=== PATIENT | male | born 2000 | race Caucasian/White ===

== ENCOUNTER 2022-08-06 11:07 | Emergency (ER) | payer BC, MEDICAID, SELFPAY ==
[2022-08-06 11:41] VITALS: BP 126/83; PULSE 97; RESP 20; TEMP 38.8; O2SAT 95
--- NOTE | 2022-08-06 12:00 | W.ED.FEVER ---
HPI - Fever General: Chief Complaint: Fever Stated Complaint: fever, n/v Time Seen by Provider: 08/06/22 11:46 Source: patient Mode of arrival: ambulatory Limitations: no limitations History of Present Illness: Patient is a 21-year-old male who presents to ED today with a complaint of fever, body aches, and joint pains beginning yesterday. Patient states he has had positive influenza exposure. He has been seen along with his girlfriend/fianc? who has identical symptoms. MD elicited complaint: fever Onset (ago): day(s) (yesterday) Measured temperature: 101.8 F Context: sick contacts (girlfriend) Associated symptoms: Reports chills and nausea; Deny abdominal pain, flank pain, chest pain, confusion, diarrhea, dysuria, headache(s), nasal congestion, sinus pain or vomiting Treatments prior to arrival fever: ibuprofen (400mg early this AM) Review of Systems Const: Reports: fever(s), chills and body aches Eyes: Denies: change in vision, blurry vision, photophobia, eye discharge or eye redness ENMT: Denies: throat pain, odynophagia, ear or mastoid pain, nasal discharge, nasal congestion or sinus pain Card: Denies: chest pain Resp: Denies: dyspnea, productive cough, non-productive cough or chest congestion GI: Reports: nausea; Denies: abdominal pain, vomiting, diarrhea or change in bowel habits : Denies: flank pain or dysuria Musc: Denies: muscle cramps Skin/Breast: Denies: rash Neuro: Denies: headache(s) or confusion Physical Exam Const: COMMON NORMALS: no acute distress, average body habitus, patient oriented x3, no limitations, alert and well nourished GENERAL APPEARANCE: cooperative ORIENTATION/CONSCIOUSNESS: Yes awake, Yes oriented to person, Yes oriented to place and Yes oriented to time OTHER: mildly ill appearing, non-toxic HENMT: COMMON NORMALS: normocephalic, atraumatic, TM's normal bilaterally and Normal external nose present HEAD & SCALP: normal to inspection, normocephalic and atraumatic FACE & SINUS: normal facial exam NOSE: Normal external nose present TYMPANIC MEMBRANE: TM's normal bilaterally MOUTH: Normal oral and palatal mucosa present, lip normal and tongue normal THROAT: posterior oropharynx normal and tonsils normal Eye: GENERAL EYE: appearance normal, both eyes and all related structures Neck/C-Spine: COMMON NORMALS: full ROM, no lymphadenopathy and no meningeal signs Resp: COMMON NORMALS: normal respiratory effort and clear to auscultation bilaterally AUSCULTATION: clear to auscultation bilaterally Cardio: COMMON NORMALS: regular rate and regular rhythm RATE: regular rate RHYTHM: regular rhythm GI: COMMON NORMALS: Normal to inspection, nondistended, normoactive bowel sounds present, Soft to palpation and non-tender PALPATION: Yes Soft to palpation : COMMON NORMALS: Yes no CVA tenderness BLADDER/KIDNEY EXAM: Yes no CVA tenderness Back/Pelvis: COMMON NORMALS: no CVA tenderness, thoracic and lumbar spine normal to inspection, no thoracic nor lumbar tenderness, thoraco-lumbar ROM normal and straight leg raise negative bilaterally Extremity: COMMON NORMALS: normal to inspection GENERAL: Yes normal exam except as noted Neuro: HELEN COMA SCALE: document GCS findings Helen coma scale eye opening: Spontaneous [place] coma scale verbal response: Orientated [place] coma scale motor response: Obey commands Helen coma scale total score: 15 COMMON NORMALS: patient oriented x3, moves all extremities, no focal motor deficits, no sensory deficits noted and gait normal SENSORIUM/ORIENTATION: Yes alert, Yes oriented to person, Yes oriented to place and Yes oriented to time MENINGEAL SIGNS: Yes no meningeal signs Skin: COMMON NORMALS: no rashes or lesions noted GENERAL SKIN EXAM: no rashes or lesions noted Course Vital Signs: Vital signs: Vital Signs Temperature 101.8 F H 08/06/22 11:41 Pulse Rate 97 08/06/22 11:41 Respiratory Rate 20 H 08/06/22 11:41 Blood Pressure 126/83 08/06/22 11:41 Pulse Oximetry 95 08/06/22 11:41 MDM - Fever Medical Decision Making Patient with known positive influenza exposure. He arrives with his girlfriend/fianc? with identical symptoms. Clinically patient has influenza. No need for additional testing or confirmation based on clinical presentation. Discussed Tamiflu and its marginal benefit which patient declines. He is agreeable to current evaluation/treatment plan. Return ED precautions given. Discharge Plan Discharge Patient Disposition: Home Clinical Impression: Exposure to influenza, Viral illness Condition: Stable Discharge Orders: Discharge ED (Routine); Ordered 08/06/22 Ordered By: Krista Badillo Patient Instructions: Influenza (DC) Coding Level of Care Code ED Alignment Technician for Sharon Field
[2022-08-06 12:22] VITALS: PULSE 90; O2SAT 93
== END 2022-08-06 12:15 | disposition home or self-care (01) ==
PROVIDERS: Emergency Provider Physician Assistant
DX: B34.9 Viral infection, unspecified (principal)
CPT/HCPCS: 99282

== ENCOUNTER 2022-08-10 10:35 | Emergency (ER) | payer BC, MEDICAID, SELFPAY ==
--- NOTE | 2022-08-10 10:44 | XR_ITS ---
WS: [id number] Exam: XR chest 1V portable [id number] Date/Time of Exam: 08/10/2022 10:30 AM Reason For Exam: cp No priors. Consolidating infiltrate and atelectasis in the right upper lobe. There is also infiltrate in the jeremiah gular segment of the left upper lobe. Consolidated masslike density at the left hilum that may repres ent pneumonia however a mass could have this appearance. No pleural effusion or pneumothorax. Normal cardiomediastinal silhouette and regional bony elements. Recommendations: Serial follow-up chest radiographs recommended to confirm complete resolution. XR/XR chest 1V portable [id number] IMPRESSION: 1. Infiltrates in the right upper lobe and lingula suggesting pneumonia. 2. Consolidated left hilar density that may represent focal pneumonia or mass.
--- NOTE | 2022-08-10 10:54 | ED_ITS ---
HPI - Chest Pain General: Chief Complaint: Chest Pain Stated Complaint: Chest pains Time Seen by Provider: 08/10/22 10:54 History of Present Illness: Mr. Joel is a 21-year-old male without significant past medical history presenting to the emergency department due to generalized illness with chest pain and shortness of breath. Onset of symptoms approximately 1 to 2 days ago and gradual. Since that time he endorses severe worsening chest pain as well as shortness of breath. Endorses generalized malaise, fevers, chills. Does have a mildly productive cough. Does have sick contacts. No other specific changes in health, exacerbating, or alleviating factors identified. Onset (ago): day(s) Timing of current episode: increasing Onset: during rest Pain location: left chest and right chest Pain radiation: back Severity: severe Quality: aching and sharp Relieving factors: nothing Exacerbating factors: exertion and inspiration Context: recent illness Associated symptoms: Reports dyspnea and nausea Treatment prior to arrival: aspirin Review of Systems General: Reports: 10 or more systems reviewed and unremarkable except in HPI and below Resp: Reports: dyspnea GI: Reports: nausea PFSH ED PFSH: Medical History (Updated 08/18/22 @ 00:00 by TORI De Santiago) No significant past medical history Surgical History (Updated 08/10/22 @ 11:24 by Lázaor Lara MD) No significant past surgical history Physical Exam 2 Const: COMMON NORMALS: alert GENERAL APPEARANCE: cooperative, well developed, in distress (Mildly, due to pain) and ill appearing (Mildly) HENMT: COMMON NORMALS: normocephalic and atraumatic HEAD & SCALP: normocephalic and atraumatic Eye: COMMON NORMALS: conjunctivae normal CONJUNCTIVA: Yes conjunctivae normal SCLERA: sclerae normal Neck/C-Spine: COMMON NORMALS: supple GENERAL: Yes trachea midline Resp: EFFORT & INSPECTION: Yes able to speak in complete sentences and Yes tachypneic AUSCULTATION: rhonchi right upper Cardio: COMMON NORMALS: regular rhythm RATE: tachycardic RHYTHM: regular rhythm GI: COMMON NORMALS: Soft to palpation PALPATION: Yes Soft to palpation and No Tenderness to palpation present (GI) Extremity: GENERAL: Yes normal exam except as noted and No edema Neuro: COMMON NORMALS: moves all extremities SENSORIUM/ORIENTATION: Yes alert and No Orientation impaired Psych: COMMON NORMALS: mental status grossly normal and Normal thought process present THOUGHT PROCESS: Normal thought process present Course Vital Signs: Vital signs: Vital Signs Pulse Rate 108 H 08/10/22 13:43 Respiratory Rate 18 08/10/22 13:56 Blood Pressure 104/86 08/10/22 13:43 Pulse Oximetry 98 08/10/22 13:43 Oxygen Delivery Me thod 08/10/22 13:43 MDM - Chest Pain Medical Decision Making 21-year-old male presenting with chest pain with recent diagnosis of pneumonia. Exam as above, nontoxic. EKG notable for sinus tachycardia with short OK interval, no STEMI, no clear accessory pathway abnormality. Labs notable for no leukocytosis, normal hemoglobin and platelet count. Metabolic end with no evidence of dehydration and mild hypokalemia, D-dimer is elevated. Delta troponin and initial troponin negative. Influenza positive. Procalcitonin elevated. Chest x-ray with patchy infiltrates concerning for pneumonia or left hilar mass as well. Given elevated D-dimer which was obtained as patient cannot be negative by PERC criteria a CT was obtained. CT without evidence of pulmonary Halytskyy. Bilateral pneumonia and mild reactive lymphadenopathy. Patient improved with analgesia, antiemetic, acetaminophen, fluids. Antibiotics administered. Patient able to tolerate p.o. intake. Most likely etiology of patient's symptoms is influenza with superimposed bacterial infection. I offer the patient inpatient management which he declined. Strict return precautions discussed. The results of ED evaluation were discussed with the patient including prescriptions and/or symptomatic cares (if applicable) including appropriate and responsible use, followup plan, and return precautions. The patient verbalized understanding and felt safe for discharge. Medical Records I reviewed the patient's medical records. Lab Data I reviewed the patient's lab results. 08/10/22 11:34 08/10/22 11:34 Radiology Impressions Chest X-Ray 08/10/22 10:44 IMPRESSION: 1. Infiltrates in the right upper lobe and lingula suggesting pneumonia. 2. Consolidated left hilar density that may represent focal pneumonia or mass. Chest CTA 08/10/22 12:19 IMPRESSION: 1. No pulmonary embolism. 2. Bilateral pulmonary opacifications as described above. Differential includes the Vaping associated lung injury, Covid associated pneumonitis/viral pneumonia. 3. Mild associated reactive lymphadenopathy. Laboratory Results WBC 11.7 10^3/uL (4.5-13.0) 12/22/22 11:34 RBC 5.18 10^6/uL (4.1-5.3) 08/10/22 11:34 Hgb 15.9 g/dL (11.7-16.6) 08/10/22 11:34 Hct 45.6 % (42.0-52.0) 08/10/22 11:34 MCV 88.0 fl (80-94) 08/10/22 11:34 MCH 30.7 pg (28.0-34.0) 08/10/22 11:34 MCHC 34.9 g/dL (30.0-36.0) 08/10/22 11:34 RDW 11.8 % (12.1-15.1) L 08/10/22 11:34 Plt Count 189 10^3/cmm (130-400) 08/10/22 11:34 MPV 11.7 fL (7.4-10.4) H 08/10/22 11:34 Neut % (Auto) 88.9 % 08/10/22 11:34 Lymph % (Auto) 6.5 % 08/10/22 11:34 Green % (Auto) 3.9 % 08/10/22 11:34 Eos % (Auto) 0.0 % 08/10/22 11:34 Baso % (Auto) 0.4 % 08/10/22 11:34 Neut # (Auto) 10.40 10^3/uL (1.8-8.0) H 08/10/22 11:34 Lymph # (Auto) 0.8 10^3/uL (1.5-6.5) L 08/10/22 11:34 Green # (Auto) 0.5 10^3/uL (0.2-0.9) 08/10/22 11:34 Eos # (Auto) 0.0 10^3/uL (0.0-0.8) 08/10/22 11:34 Baso # (Auto) 0.1 10^3/uL (0.0-0.1) 08/10/22 11:34 Nucleated RBC % (auto) 0 % 08/10/22 11:34 Nucleated RBCs # 0.0 /100WBC 08/10/22 11:34 D-Dimer 1.29 ug/mIFEU (0-0.59) H 08/10/22 11:34 Sodium 128 mmol/L (136-145) L 08/10/22 11:34 Potassium 3.4 mmol/L (3.5-5.1) L 08/10/22 11:34 Chloride 88 mmol/L (98-107) L 08/10/22 11:34 Carbon Dioxide 26 mmol/L (22-29) 08/10/22 11:34 Anion Gap 17.4 (5-19) 08/10/22 11:34 BUN 7 mg/dL (6-20) 08/10/22 11:34 Creatinine 0.7 mg/dL (0.7-1.2) 08/10/22 11:34 GFR Calculation 143.8 mL/min (90-130) H 08/10/22 11:34 Glucose 118 mg/dL (65-115) H 08/10/22 11:34 Calculated Osmolality 265 mOsm/kg (285-295) L 08/10/22 11:34 Lactic Acid 1.7 mmol/L (0.5-2.2) 08/10/22 11:34 Calcium 9.6 mg/dL (8.5-10.5) 08/10/22 11:34 Total Bilirubin 0.8 mg/dL (0.15-1.2) 08/10/22 11:34 AST 18 U/L (0-40) 08/10/22 11:34 ALT 9 U/L (0-41) 08/10/22 11:34 Alkaline Phosphatase 79 U/L (40-130) 08/10/22 11:34 Troponin T Baseline 6 ng/L (0-15) 08/10/22 11:34 Troponin T 120 Minute 6.00 ng/L (0-15) 08/10/22 13:14 Delta Troponin T 0 ABS# (0-10) 08/10/22 13:14 Total Protein 8.3 g/dL (6.6-8.7) 08/10/22 11:34 Albumin 4.2 g/dL (3.5-5.2) 08/10/22 11:34 Globulin 4.1 g/dL (1.3-4.6) 08/10/22 11:34 Lipase 8 U/L (13-60) L 08/10/22 11:34 Procalcitonin 3.64 ng/mL (0-0.5) H 08/10/22 11:34 Influenza Type A Ag positive (Negative) H 08/10/22 11:44 Influenza Type B Ag negative (Negative) 08/10/22 11:44 SARS-CoV-2 Ag (Rapid) negative (Negative) 08/10/22 11:44 Discharge Plan Discharge Patient Disposition: Home Clinical Impression: Chest pain, Viral illness, Pneumonia, Influenza A, Dehydration Condition: Stable Prescriptions: New ondansetron 4 mg tablet,disintegrating 4 mg PO Q8H PRN (Reason: nausea and vomiting) Qty: 15 0RF oxycodone 5 mg tablet 5 mg PO Q4H PRN (Reason: pain) Qty: 10 0RF No Action ibuprofen 200 mg Capsule 800 mg PO Q6H PRN (Reason: Pain) echinacea-hernandez seal 250-200 mg Capsule 1 cap PO QID Tylenol 325 mg Capsule 650 mg PO QID PRN (Reason: Pain) Discharge Orders: Discharge ED (Routine); Ordered 08/10/22 Ordered By: Lázaro Lara Discharge Diet: Usual diet Discharge Activity: Increase activity as tolerated Patient Instructions: Levofloxacin (By mouth), Oseltamivir (By mouth), Dehydration (ED), Influenza (ED), Bacterial Pneumonia (ED) Activity Restrictions/Additional Instructions: Thank you for visiting the emergency department. You were seen and evaluated for chest pain with respiratory symptoms. You appear to have influenza as well as a bacterial pneumonia. This will be treated with antibiotics and antiviral medication. Additionally I will prescribe pain medications which she should use cautiously and antinausea medication. You may use buyc-eqb-eycsxmx medications such as acetaminophen and ibuprofen for pain however please do not exceed the daily recommended dosage as listed on the packaging and please keep in mind that many namebrand medications contain the same active ingredients. Please avoid these medications if previously instructed to do so by another physician due to other underlying medical condition. Please return to the emergency department for worsening symptoms, oxygen saturation less than 90%, uncontrolled pain, worsening shortness of breath, failure to improve, or anything else that you are concerned about and feel needs emergency department evaluation. Please follow-up with a primary care provider. Given dehydration I recommend repeat laboratory studies 1 week after resolution of illness to ensure normalization. Coding Level of Care Code ED Supervisor Esters And Emulsifiers for Sharon Field Exam Comprehensive
--- NOTE | 2022-08-10 11:03 | ECG_ITS ---
[facility] Test Date: 2022-08-10 Pat Name: Robe Joel Department: Room: Gender: Male Pillow Agent: : 2000 Requested By: Lázaro Lara Order Number: [id number] Marleny MD: Rashid Laird M.D. Measurements Intervals [place] Rate: 109 P: 63 NM: 117 QRS: 96 QRSD: 85 T: 42 QT: 326 QTc: 440 Interpretive Statements SINUS TACHYCARDIA WITH SHORT NM INTERVAL BORDERLINE RIGHT AXIS DEVIATION [QRS AXIS > 90] No previous ECG available for comparison Electronically Signed On 08-10-2022 12:57:49 ACCESS RN by Rashid Laird M.D. [id number]
[2022-08-10 11:06] VITALS: BP 137/88; PULSE 110; RESP 24; O2SAT 91; BMI 24.3
[2022-08-10] MEDS: ondansetron 2 mg/ML SDV 2 mL 4 MG IVP ×2 (11:37→13:56)
[2022-08-10] MEDS: ketorolac 30 mg/mL INJ 15 MG IVP (11:37)
[2022-08-10] MEDS: morphine 4 mg/mL SDV 1 mL IVP (11:37)
[2022-08-10] MEDS: sodium chloride 0.9% 1,000 ML 999 ML IV (11:37)
[2022-08-10 11:55] LABS: Basophils # 0.1 10^3/uL (0.0-0.1); Basophils % 0.4 %; Hematocrit 45.6 % (42.0-52.0); Hemoglobin 15.9 g/dL (11.7-16.6); Lymphocytes # 0.8 10^3/uL (1.5-6.5); Lymphocytes % 6.5 %; Mean Corpuscular HGB Conc 34.9 g/dL (30.0-36.0); Mean Corpuscular Hemoglobin 30.7 pg (28.0-34.0); Mean Platelet Volume 11.7 fL (7.4-10.4); Monocytes # 0.5 10^3/uL (0.2-0.9); Monocytes % 3.9 %; Neutrophils % 88.9 %; Nucleated Red Blood Cells % 0 %; Platelet Count 189 10^3/cmm (130-400); Red Blood Count 5.18 10^6/uL (4.1-5.3); Red Cell Distribution Width 11.8 % (12.1-15.1); White Blood Count 11.7 10^3/uL (4.5-13.0)
[2022-08-10 12:10] LABS: Influenza A by IFA positive (Negative); Influenza B by IFA negative (Negative)
[2022-08-10 12:11] LABS: SARS Covid-2 Antigen negative (Negative)
[2022-08-10 12:18] LABS: D Dimer 1.29 ug/mIFEU (0-0.59)
--- NOTE | 2022-08-10 12:19 | CT_ITS ---
WS: [id number] CT CHEST ANGIOGRAPHY WITH REFORMATS HISTORY: cp, sob, elevated ddi krysta TECHNIQUE: Contiguous axial images are obtained through the chest during arterial injection of intrav enous contrast. Images are reconstructed to evaluate the pulmonary arteries. MIP imaging also reviewe d. All CT scans at [facility] use at least one of these dose optimization techniques: automat ed exposure control; mA and/or kV adjustment per patient size (includes targeted exams where dose is matched to clinical indication); or iterative reconstruction. CONTRAST: Omnipaque 350; 95 mL IV. DLP: 297.78 mGy.cm COMPARISON: No similar studies. Adequate opacification of the pulmonary arteries. No central and proximal pulmonary emboli. Beyond th e segmental branches the opacification of the arteries becomes limited. No large central pulmonary em bolism. Bilateral areas of dense consolidation with groundglass attenuation and tree-in-bud airspace disease. Slightly greatest involving the RIGHT upper lobe. Multi lobar opacifications. No pleural effusion. N o pneumothorax. Mediastinal and hilar lymph nodes slightly increased in size and number. The largest lymph node at th e RIGHT hilum measures 13 mm in diameter. Additional bilateral smaller perihilar lymph nodes. Normal size aorta and pulmonary artery. Liver incompletely included in this examination but appears prominent. CT/CT angio chest PE protcl [id number] IMPRESSION: 1. No pulmonary embolism. 2. Bilateral pulmonary opacifications as described above. Differential include s the Vaping associated lung injury, Covid associated pneumonitis/viral pneumon ia. 3. Mild associated reactive lymphadenopathy.
[2022-08-10 12:20] LABS: Troponin(5th) Baseline 6 ng/L (0-15)
[2022-08-10 12:22] LABS: Alanine Aminotransferase 9 U/L (0-41); Albumin Level 4.2 g/dL (3.5-5.2); Alkaline Phosphatase 79 U/L (40-130); Aspartate Amino Transferase 18 U/L (0-40); Blood Urea Nitrogen 7 mg/dL (6-20); Calcium 9.6 mg/dL (8.5-10.5); Carbon Dioxide 26 mmol/L (22-29); Chloride 88 mmol/L (98-107); Globulin 4.1 g/dL (1.3-4.6); Glomerular Filtration Rate 143.8 mL/min (90-130); Glucose 118 mg/dL (65-115); Lactic Sepsis W/Reflex 1.7 mmol/L (0.5-2.2); Lipase 8 U/L (13-60); Osmolality Calculated 265 mOsm/kg (285-295); Sodium 128 mmol/L (136-145); Total Bilirubin 0.8 mg/dL (0.15-1.2); Total Protein 8.3 g/dL (6.6-8.7)
[2022-08-10 12:25] LABS: Anion Gap 17.4 (5-19); Potassium 3.4 mmol/L (3.5-5.1)
[2022-08-10 12:29] LABS: Procalcitonin 3.64 ng/mL (0-0.5)
[2022-08-10 12:48] LABS: Slide Review Slide Review Perform
[2022-08-10] MEDS: iohexol 350 mg/mL 500 mL Btl (per mL) IV (12:56)
--- NOTE | 2022-08-10 13:20 | ECG_ITS ---
[facility] Test Date: 2022-08-10 Pat Name: Robe Joel Department: Room: Gender: Male Reception Agent: : 2000 Requested By: Lázaro Lara Order Number: [id number] Marleny MD: Rashid Laird M.D. Measurements Intervals [place] Rate: 102 P: 50 CT: 117 QRS: 99 QRSD: 88 T: 54 QT: 333 QTc: 434 Interpretive Statements SINUS TACHYCARDIA WITH SHORT CT INTERVAL BORDERLINE RIGHT AXIS DEVIATION [QRS AXIS > 90] Compared to ECG 08/10/2022 11:03:54 No significant changes Electronically Signed On 08-10-2022 13:28:23 HATCHERY HELPER by Rashid Laird M.D. [id number]
[2022-08-10] MEDS: cefTRIAXone 1,000 MG in sodium chloride 0.9% (plus) 50 ML 100 MG IV (13:22)
[2022-08-10] MEDS: potassium chloride ER 20 mEq Tablet 40 MEQ PO (13:22)
[2022-08-10 13:43] VITALS: BP 104/86; PULSE 108; RESP 18; O2SAT 98
[2022-08-10] MEDS: doxycycline 100 MG in sodium chloride 0.9% (plus) 100 ML IV (13:55)
[2022-08-10 13:56] VITALS: RESP 18
[2022-08-10] MEDS: oxyCODONE 5 mg IR Tab/Cap PO (13:56)
[2022-08-10] MEDS: metoclopramide 5 mg/mL SDV 2 mL 10 MG IVP (14:03)
[2022-08-10 14:25] LABS: Troponin 5 2HR Delta 0 ABS# (0-10)
== END 2022-08-10 15:19 | disposition home or self-care (01) ==
PROVIDERS: Emergency Provider Emergency Medicine
DX: R07.9 Chest pain, unspecified (principal); B34.9 Viral infection, unspecified; J18.9 Pneumonia, unspecified organism; J10.1 Influenza due to other identified influenza virus with other respiratory manifestations; E86.0 Dehydration
CPT/HCPCS: 36415; 71045; 71275; 80053; 83605; 83690; 84145; 84484; 85025; 85378; 87040; 87426; 87804; 93005; 96365; 96367; 96375; 99285; J0696; J1885; J2270; J2405; J2765; J3490; J7030; Q9967

== ENCOUNTER 2023-01-25 11:56 | Emergency (ER) | payer SELFPAY ==
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
[2023-01-25 12:03] VITALS: BMI 23.5
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
[2023-01-25 12:11] VITALS: BP 99/81; PULSE 76; RESP 22; TEMP 36.7; O2SAT 98
[2023-01-25] MEDS: LORazepam 2 mg/mL INJ 1 mL 1 MG IM (12:15)
[2023-01-25] MEDS: LORazepam 2 mg/mL INJ 1 mL 1 MG IVP (12:38)
[2023-01-25] MEDS: metoclopramide 5 mg/mL SDV 2 mL 10 MG IVP (12:39)
[2023-01-25 12:43] VITALS: BP 137/84; PULSE 82; O2SAT 98
[2023-01-25 13:36] VITALS: BP 150/89; PULSE 95; O2SAT 97
[2023-01-25] MEDS: fentaNYL 50 mcg/mL INJ 2mL 100 MCG IVP (14:25)
--- NOTE | 2023-01-25 14:28 | DCPLANNER ---
Addendum entered by Valarie Driver 01/26/23 11:23: consulting manager received the following message from the ortho clinic regarding follow up appointment: Called patient and left a voicemail to schedule a fwup with Ramona or Khai for next week. Thank you! Original Note: consulting manager had message to schedule a followup appointment for patient with ortho. consulting manager sent patients information to the front office staff at ortho. Patients information will be printed and reviewed. Clinic will call patient with appointment information.
[2023-01-25 14:54] VITALS: BP 126/75; PULSE 87; O2SAT 97
--- NOTE | 2023-01-26 09:20 | DCPLANNER ---
activities manager called patient due to no primary care physician -no answer at this time.
== END 2023-01-25 14:55 | disposition home or self-care (01) ==
PROVIDERS: Emergency Provider Emergency Medicine
DX: S22.000A Wedge compression fracture of unspecified thoracic vertebra, initial encounter for closed fracture (principal); V43.92XA Unspecified car occupant injured in collision with other type car in traffic accident, initial encounter
CPT/HCPCS: 70450; 72125; 72128; 96372; 96374; 96375; 99284; J2060; J2765; J3010; J3490

== ENCOUNTER → 2023-02-01 10:42 | Outpatient (BNVA) | payer BC, MEDICAID, SELFPAY | PROVIDERS: Visit Provider Orthopaedic Surgery | DX: M54.9 Dorsalgia, unspecified (principal) | CPT/HCPCS: 72100 ==

== ENCOUNTER 2023-03-01 21:24 | Inpatient (IN) | payer BC, SELFPAY ==
[2023-03-01 21:31] VITALS: BP 116/68; PULSE 78; RESP 20; TEMP 37.1; O2SAT 99; BMI 24.3
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
[2023-03-01 21:51] LABS: Basophils % 0.5 %; Eosinophils # 0.5 10^3/uL (0.0-0.8); Eosinophils % 5.1 %; Hematocrit 43.5 % (42.0-52.0); Hemoglobin 14.3 g/dL (11.7-16.6); Lymphocytes # 2.6 10^3/uL (0.8-4.8); Lymphocytes % 29.3 %; Mean Corpuscular HGB Conc 32.9 g/dL (30.0-36.0); Mean Corpuscular Hemoglobin 30.5 pg (28.0-34.0); Mean Corpuscular Volume 92.8 fl (80-94); Mean Platelet Volume 10.8 fL (7.4-10.4); Monocytes # 0.8 10^3/uL (0.2-0.9); Monocytes % 9.4 %; Neutrophils # 4.91 10^3/uL (1.8-7.7); Neutrophils % 55.6 %; Nucleated Red Blood Cells % 0 %; Platelet Count 217 10^3/cmm (130-400); Red Blood Count 4.69 10^6/uL (4.1-5.3); Red Cell Distribution Width 13.2 % (12.1-15.1); White Blood Count 8.8 10^3/uL (4.0-10.0)
[2023-03-01 22:08] LABS: Alanine Aminotransferase 12 U/L (0-41); Albumin Level 4.5 g/dL (3.5-5.2); Alkaline Phosphatase 70 U/L (40-130); Anion Gap 13.3 (5-19); Aspartate Amino Transferase 16 U/L (0-40); Blood Urea Nitrogen 9 mg/dL (6-20); Carbon Dioxide 28 mmol/L (22-29); Chloride 101 mmol/L (98-107); Globulin 2.8 g/dL (1.3-4.6); Glomerular Filtration Rate 142.4 mL/min (90-130); Glucose 81 mg/dL (65-115); Osmolality Calculated 286 mOsm/kg (285-295); Potassium 3.3 mmol/L (3.5-5.1); Sodium 139 mmol/L (136-145); Total Bilirubin 1.1 mg/dL (0.15-1.2); Total Protein 7.3 g/dL (6.6-8.7)
[2023-03-01 22:15] LABS: Amphetamines Screen Urine Negative (Negative); Barbiturates Screen Urine Negative (Negative); Benzodiazepines Screen Urine Positive (Negative); Cocaine Screen Urine Positive (Negative); Opiate Screen Urine Negative (Negative); PCP Screen Urine Negative (Negative); THC Screen Urine Positive (Negative)
--- NOTE | 2023-03-01 22:20 | PC.NURSE ---
96 Hour Hold Patient Rights have been read to patient and a copy of the same was given to him. Acquisition Professional Robert Shah was present at bedside at the time of reading. All questions were answered to the patient's satisfaction.
[2023-03-01 22:21] LABS: Acetaminophen < 5.0 ug/mL (10-30); Alcohol Level < 10 mg/dL (0-10); Salicylate < 0.3 mg/dL (3-10)
[2023-03-01 23:15] VITALS: BP 111/66; PULSE 62; RESP 18; TEMP 36.4; O2SAT 95
[2023-03-01 23:21] VITALS: BP 116/68; PULSE 78; RESP 20; TEMP 37.1; O2SAT 99
[2023-03-01] MEDS: ibuprofen 600 mg Tablet PO (23:30)
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
[2023-03-02] MEDS: hyDROXYzine 25 mg Capsule 50 MG PO (00:41)
[2023-03-02] MEDS: trazodone 50 mg Tablet PO ×2 (00:42→21:41)
--- NOTE | 2023-03-02 03:04 | PC.NURSE ---
PT MEDS RECONCILED. PT NO LONGER TAKING ANY OF HIS PRESCRIBED PAIN MEDICATION.
--- NOTE | 2023-03-02 03:07 | PC.NURSE ---
PT REQUESTED MEDICATION TO HELP HIM SLEEP AND CALM DOWN. PT WAS GIVEN TRAZODONE 50 MG AND VISTARIL 50 MG ORDERED TO ASSIST WITH SLEEPING AND ANXIETY. PT STAYED UP IN DAY AREA FOR A SHORT TIME THEN WENT TO BED. PT CURRENTLY RESTING WITH EYES CLOSED IN BED. NO DISTRESS IS NOTED AT THIS TIME. MEDICATION WAS EFFECTIVE.
[2023-03-02 06:00] VITALS: BP 94/59; PULSE 56; RESP 16; O2SAT 97
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
[2023-03-02 14:00] VITALS: BP 99/60; PULSE 66; RESP 16; TEMP 36.4; O2SAT 97
[2023-03-02 21:01] VITALS: BP 122/86; PULSE 76; RESP 18; TEMP 36.7; O2SAT 98
[2023-03-03 06:00] VITALS: BP 105/72; PULSE 59; RESP 15; O2SAT 99
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
[2023-03-03 14:00] VITALS: BP 120/72; PULSE 80; RESP 16; TEMP 36.6; O2SAT 96
[2023-03-03] MEDS: LORazepam 2 mg/mL INJ 1 mL IM (19:12)
[2023-03-03 20:11] VITALS: BP 116/81; PULSE 74; RESP 18; TEMP 37.3; O2SAT 99
[2023-03-03] MEDS: trazodone 50 mg Tablet PO ×2 (21:04→22:20)
[2023-03-03] MEDS: hyDROXYzine 25 mg Capsule 50 MG PO (21:04)
[2023-03-04 06:00] VITALS: BP 110/69; PULSE 74; RESP 16; TEMP 36.7; O2SAT 96
[2023-03-04] MEDS: LORazepam 2 mg Tablet PO ×3 (06:28→20:08)
[2023-03-04] MEDS: multivitamin therapeutic Tablet 1 TAB PO (09:31)
[2023-03-04] MEDS: thiamine 100 mg Tablet PO (09:31)
[2023-03-04] MEDS: LORazepam 2 mg/mL INJ 1 mL IM (12:49)
--- NOTE | 2023-03-04 12:51 | PC.NURSE ---
pt scored 18 on CIWA. pt currently vomiting, administered im ativan for withdrawal.
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
[2023-03-04 14:00] VITALS: BP 114/87; PULSE 114; RESP 16; TEMP 36.6; O2SAT 97
[2023-03-04] MEDS: hyDROXYzine 25 mg Capsule 50 MG PO (20:08)
[2023-03-04] MEDS: trazodone 50 mg Tablet PO ×2 (20:08→21:28)
[2023-03-04 20:29] VITALS: BP 116/62; PULSE 127; RESP 19; TEMP 37.2; O2SAT 98
[2023-03-05 06:00] VITALS: BP 112/71; PULSE 64; RESP 15; O2SAT 97
[2023-03-05] MEDS: multivitamin therapeutic Tablet 1 TAB PO (08:35)
[2023-03-05] MEDS: thiamine 100 mg Tablet PO (08:35)
[2023-03-05] MEDS: ondansetron 4 MG Tablet PO (09:07)
--- NOTE | 2023-03-05 09:07 | PC.NURSE ---
PRN ZOFRAN 4 MG GIVEN PO PER PT C/O NAUSEA/VOMITING
[2023-03-05 14:00] VITALS: BP 111/77; PULSE 99; RESP 16; TEMP 36.6; O2SAT 97
[2023-03-05] MEDS: hyDROXYzine 25 mg Capsule 50 MG PO (16:06)
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
[2023-03-05] MEDS: LORazepam 2 mg Tablet PO (19:50)
[2023-03-05 20:29] VITALS: BP 110/54; PULSE 88; RESP 17; TEMP 37.4; O2SAT 96
[2023-03-05] MEDS: trazodone 50 mg Tablet PO ×2 (22:21→23:33)
[2023-03-06 06:00] VITALS: BP 141/75; PULSE 59; RESP 15; O2SAT 97
[2023-03-06] MEDS: thiamine 100 mg Tablet PO (08:54)
[2023-03-06] MEDS: multivitamin therapeutic Tablet 1 TAB PO (08:54)
[2023-03-06] MEDS: hyDROXYzine 25 mg Capsule 50 MG PO (09:14)
--- NOTE | 2023-03-06 10:30 | PC.NURSE ---
PRN medication vistaril 50mg po administered due to patient reporting being very anxious, pressured speech, and bouncing from one foot to another. Patient laid down for a bit and is now participating in group.
[2023-03-06] MEDS: OLANZapine 5 mg ODT PO (12:50)
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
[2023-03-06 14:00] VITALS: BP 132/88; PULSE 106; RESP 16; TEMP 36.6; O2SAT 96
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
[2023-03-06 20:09] VITALS: BP 117/86; PULSE 94; RESP 18; TEMP 37; O2SAT 96
[2023-03-06] MEDS: trazodone 50 mg Tablet PO ×2 (21:01→22:37)
[2023-03-07 06:00] VITALS: BP 113/65; PULSE 58; RESP 15; O2SAT 97
[2023-03-07] MEDS: multivitamin therapeutic Tablet 1 TAB PO (09:33)
[2023-03-07] MEDS: thiamine 100 mg Tablet PO (09:33)
[2023-03-07] MEDS: ibuprofen 600 mg Tablet PO (10:33)
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
[2023-03-07 14:00] VITALS: BP 147/72; PULSE 92; RESP 20; TEMP 36.9; O2SAT 98
[2023-03-07 20:22] VITALS: BP 123/79; PULSE 74; RESP 16; TEMP 37.3; O2SAT 99
[2023-03-07] MEDS: trazodone 50 mg Tablet PO ×2 (20:24→21:31)
[2023-03-08 06:00] VITALS: BP 110/63; PULSE 68; RESP 16; O2SAT 99
[2023-03-08] MEDS: ibuprofen 600 mg Tablet PO (07:28)
[2023-03-08] MEDS: multivitamin therapeutic Tablet 1 TAB PO (09:46)
[2023-03-08] MEDS: thiamine 100 mg Tablet PO (09:47)
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
[2023-03-08 14:00] VITALS: BP 128/84; PULSE 68; RESP 16; TEMP 36.7; O2SAT 99
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
[2023-03-08 20:24] VITALS: BP 134/93; PULSE 80; RESP 18; TEMP 36.8; O2SAT 98
[2023-03-08] MEDS: trazodone 50 mg Tablet PO ×2 (21:22→22:23)
[2023-03-09 06:00] VITALS: BP 110/69; PULSE 68; RESP 17; O2SAT 97
--- NOTE | 2023-03-09 06:44 | W.PM.NPUPNS ---
Vitals/I&O/Wt Last Vital Signs Temp 98.2 F 03/08/23 20:24 Pulse 68 03/09/23 06:00 Resp 17 03/09/23 06:00 BP 110/69 03/09/23 06:00 Pulse Ox 97 03/09/23 06:00 O2 Del Method Room Air 03/09/23 06:00 Data NPU 03/01/23 21:43 03/01/23 21:43 Involuntary Hold Information 96 Hour Hold: 96 Hour Involuntary Admission: Yes 96 Hour Hold Ending Date: 03/07/23 96 Hour Hold Ending Time: 22:20 Coding Level of Care Code Acute Code for Chg Fwd Diagnoses
[2023-03-09] MEDS: multivitamin therapeutic Tablet 1 TAB PO (08:47)
[2023-03-09] MEDS: thiamine 100 mg Tablet PO (08:47)
[2023-03-09] MEDS: ibuprofen 600 mg Tablet PO (10:17)
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
[2023-03-09 11:35] VITALS: BP 110/69; PULSE 68; RESP 17; O2SAT 97
--- NOTE | 2023-03-09 13:25 | PC.NURSE ---
written discharge instruction discussed and left with patient. rx medication delivered from [facility] main pharmacy given to patient. pt leaving in pov with family.
== END 2023-03-09 13:59 | disposition home or self-care (01) | DRG 881 ==
LOC: ER 21:48 → NP 22:40
PROVIDERS: Admitting Provider Psychiatry & Neurology Psychiatry; Emergency Provider Emergency Medicine; Visit Provider Psychiatry & Neurology Psychiatry
DX: F32.9 Major depressive disorder, single episode, unspecified (principal); R45.851 Suicidal ideations; F14.10 Cocaine abuse, uncomplicated; Z81.3 Family history of other psychoactive substance abuse and dependence; Z81.8 Family history of other mental and behavioral disorders; Z62.811 Personal history of psychological abuse in childhood; F12.90 Cannabis use, unspecified, uncomplicated; Z63.0 Problems in relationship with spouse or partner
CPT/HCPCS: 36415; 80053; 80306; 80307; 85025; 96372; 97150; 97165; 99238; 99285; J2060; Q0162

== ENCOUNTER 2023-04-01 02:51 | Emergency (ER) | payer BC, MEDICAID, SELFPAY ==
[2023-04-01] VITALS (12 sets, daily range): BP systolic 122–152; BP diastolic 78–99; PULSE 119–145; RESP 16–17; O2SAT 92–100; BMI 25.0
--- NOTE | 2023-04-01 02:58 | CTR_ITS ---
PROCEDURE INFORMATION: Exam: CT Cervical Spine Without Contrast Exam date and time: 04/01/2023 3:16 AM Age: 22 years old Clinical indication: Injury or trauma; Fall; Blunt trauma; Patient HX: Father states patient fell off of porch. Hematoma to RT occipital. TECHNIQUE: Imaging protocol: Computed tomography of the cervical spine without contrast. Radiation optimization: All CT scans at this facility use at least one of these dose optimization techniques: automated exposure control; mA and/or kV adjustment per patient size (includes targeted exams where dose is matched to clinical indication); or iterative reconstruction. REPORTING DATA: Count of CT and Cardiac NM exams in prior 12 months: This patient has received 4 known CTs and 0 known cardiac nuclear medicine studies in the 12 months prior to the current study. COMPARISON: CT cervical spin wo con* [id number] 01/25/2023 1:09 PM RADIATION DOSE METRICS: Total DLP (mGy-cm): 143.67 FINDINGS: Bones/joints: No acute fracture. Normal alignment. No significant disc bulge or herniation. No severe spinal canal stenosis. No significant neural foraminal narrowing. Lungs: Lung apices are normal. Soft tissues: Unremarkable. CT/CT cervical spin wo con* [id number] IMPRESSION: No acute findings.
--- NOTE | 2023-04-01 02:58 | CTR_ITS ---
PROCEDURE INFORMATION: Exam: CT Head Without Contrast Exam date and time: 04/01/2023 3:14 AM Age: 22 years old Clinical indication: Injury or trauma; Fall; Blunt trauma (contusions or hematomas); Patient HX: Father states patient fell off of porch. Hematoma to RT occipital. TECHNIQUE: Imaging protocol: Computed tomography of the head without contrast. Radiation optimization: All CT scans at this facility use at least one of these dose optimization techniques: automated exposure control; mA and/or kV adjustment per patient size (includes targeted exams where dose is matched to clinical indication); or iterative reconstruction. REPORTING DATA: Count of CT and Cardiac NM exams in prior 12 months: This patient has received 4 known CTs and 0 known cardiac nuclear medicine studies in the 12 months prior to the current study. COMPARISON: CT head wo con* [id number] 01/25/2023 1:09 PM RADIATION DOSE METRICS: Total DLP (mGy-cm): 228 FINDINGS: Brain: No hemorrhage. No edema, mass effect or midline shift. Cerebral ventricles: No ventriculomegaly. Paranasal sinuses: Visualized sinuses are unremarkable. No fluid levels. Mastoid air cells: No mastoid effusion. Bones/joints: No acute fracture. Soft tissues: Right occipital scalp edema. CT/CT head wo con* [id number] IMPRESSION: No acute intracranial abnormality. Right occipital scalp edema.
--- NOTE | 2023-04-01 02:58 | XRR_ITS ---
PROCEDURE INFORMATION: Exam: XR Right Ankle Exam date and time: 04/01/2023 3:03 AM Age: 22 years old Clinical indication: Injury or trauma; Fall; Blunt trauma; Right; Patient HX: Father states patient fell off of porch. Hematoma to RT occipital. Swelling to ankle with mild deformity. TECHNIQUE: Imaging protocol: Radiologic exam of the right ankle. Views: 3 or more views. COMPARISON: No relevant prior studies available. FINDINGS: Bones/joints: Displaced comminuted distal fibular fracture. There is widening of the medial ankle joint space with small punctate adjacent bony avulsions. Soft tissues: Unremarkable. XR/XR ankle RT min 3V* [id number] IMPRESSION: 1. Displaced comminuted distal fibular fracture. 2. There is widening of the medial ankle joint space with small punctate adjacent bony avulsions.
--- NOTE | 2023-04-01 02:59 | W.ED.FALL ---
HPI - Fall General: Chief Complaint: Extremity Injury, Lower Stated Complaint: right ankle injury Time Seen by Provider: 04/01/23 02:53 Source: patient Mode of arrival: ambulatory Limitations: no limitations History of Present Illness: 22-year-old male he states that he had been drinking night fell off his front porch states he twisted his right ankle is severe right ankle pain he rates his pain a 10 out of 10 he has swelling to that deformity. He did also hit his head he denies loss of consciousness denies any other injuries. Associated symptoms-after fall: Denies abdominal pain, chest pain, headache(s) or neck pain Review of Systems Const: Denies: fever(s) or chills ENMT: Denies: throat pain or dental pain Card: Denies: chest pain Resp: Denies: dyspnea GI: Denies: abdominal pain, nausea, vomiting or diarrhea Musc: Reports: extremity pain; Denies: neck pain or back pain Skin/Breast: Denies: rash Neuro: Denies: headache(s) PFS ED PFSH: Medical History No significant past medical history Surgical History No significant past surgical history Physical Exam Const: COMMON NORMALS: no acute distress, patient oriented x3 and healthy appearing HENMT: COMMON NORMALS: normocephalic HEAD & SCALP: normocephalic OTHER: hematoma to posterior scalp Eye: COMMON NORMALS: Equal, round and reactive pupils present and EOMs intact bilaterally PUPIL: Yes Equal, round and reactive pupils present Neck/C-Spine: COMMON NORMALS: full ROM and supple Chest: COMMONS NORMALS: normal inspection of the chest and normal palpation of entire chest wall Resp: COMMON NORMALS: normal respiratory effort, No retractions, No use of accessory muscles and clear to auscultation bilaterally AUSCULTATION: clear to auscultation bilaterally Cardio: COMMON NORMALS: regular rate, regular rhythm and No murmurs present (Cardio) RATE: regular rate RHYTHM: regular rhythm GI: COMMON NORMALS: Normal to inspection, nondistended, normoactive bowel sounds present, Soft to palpation, non-tender and no masses PALPATION: Yes Soft to palpation Extremity: NARRATIVE EXTREMITY EXAM: tenderness over right ankle with swelling distl pulses intact Neuro: COMMON NORMALS: patient oriented x3, moves all extremities and no focal motor deficits Psych: COMMON NORMALS: mental status grossly normal, Normal thought process present and cooperative THOUGHT PROCESS: Normal thought process present Skin: COMMON NORMALS: no rashes or lesions noted and no wounds GENERAL SKIN EXAM: no rashes or lesions noted Procedures Orthopedic Fracture Reduction Fracture #1: Time Out Performed: Yes Side: right Fracture Reduction Location: other (ankle) Analgesia: procedural sedation Technique: direct manipulation Post Reduction X-rays Demonstrate: anatomical reduction Post-reduction neuro exam: intact Post-reduction vascular exam: intact Splint Applied: Yes Patient Tolerated Procedure: well Orthopedic Splinting/Casting Injury #1: Side: right Lower Extremity Injury Location: ankle Lower Extremity Immobilizer: posterior splint and stirrup splint Other Orthopedic Equipment: crutches Procedural Sedation Indication: fracture/dislocation reduction ASA Class: I Time of Last PO Intake: 18:00 Preparation: quality assurance monitor body applied and pulse oximeter Ketamine: IV Ketamine dose (mg): 100 Patient Tolerated Procedure: well Complications: none Course Vital Signs: Vital signs: Vital Signs Pulse Rate 124 H 04/01/23 04:51 Respiratory Rate 16 04/01/23 04:51 Blood Pressure 131/82 04/01/23 04:51 Pulse Oximetry 95 04/01/23 04:51 Oxygen Delivery Me thod Room Air 04/01/23 04:24 Oxygen Flow Rate 5 04/01/23 04:11 MDM - Fall Medical Decision Making Patient presents with ankle fracture to his right ankle patient was sedated did reduce the ankle placed in a splint. He is to be nonweightbearing he is to follow-up with orthopedics he understands agrees to plan. Lab Data Radiology Impressions Cervical Spine CT 04/01/23 02:58 IMPRESSION: No acute findings. Head CT 04/01/23 02:58 IMPRESSION: No acute intracranial abnormality. Right occipital scalp edema. Ankle X-Ray 04/01/23 03:55 IMPRESSION: 1. Interval improvement in the medial joint space status post reduction. 2. Displaced distal fibular fracture with improvement in alignment. Discharge Plan Discharge Patient Disposition: Home Clinical Impression: Ankle fracture, right Qualifiers: Encounter type: initial encounter Fracture type: closed Qualified Code(s): S82.891A - Other fracture of right lower leg, initial encounter for closed fracture Condition: Stable Prescriptions: No Action Vitamin B-1 (mononitrate) 100 mg Tablet 100 mg PO DAILY 30 Days Qty: 30 1RF Discharge Orders: Discharge ED (Routine); Ordered 04/01/23 Ordered By: Bradly Hawkins Referrals: Sergey Lyman FNP [Primary Care Provider] - Kalie Tatum MD [Physician] - 1-3 days Discharge Diet: Advance as tolerated Discharge Activity: Use walker/crutches as instructed Patient Instructions: Ankle Fracture (ED) Coding Level of Care Code ED Operator Weapon Locating Radar for Sharon Field
[2023-04-01] MEDS: HYDROcodone-acetaminophen 7.5-325 mg Tablet 1 TAB PO (03:06)
--- NOTE | 2023-04-01 03:55 | XRR_ITS ---
PROCEDURE INFORMATION: Exam: XR Right Ankle Exam date and time: 04/01/2023 3:59 AM Age: 22 years old Clinical indication: Injury or trauma; Fall; Fracture, traumatic; Displaced; Fibula; Right; Patient HX: Check S/P reduction; Additional info: Post reduction TECHNIQUE: Imaging protocol: Radiologic exam of the right ankle. Views: 1 or 2 views. COMPARISON: CR (LOW EXM, ) 04/01/2023 3:03 AM FINDINGS: Bones/joints: Interval improvement in the medial joint space status post reduction. Displaced distal fibular fracture with improvement in alignment. Small bony density adjacent to the medial malleolus, avulsion fracture is not excluded. Soft tissues: Normal. Other findings: Overlying cast material noted. XR/XR ankle RT 2V [id number] IMPRESSION: 1. Interval improvement in the medial joint space status post reduction. 2. Displaced distal fibular fracture with improvement in alignment.
[2023-04-01] MEDS: ondansetron 2 mg/ML SDV 2 mL 4 MG IVP ×2 (04:14→05:10)
--- NOTE | 2023-04-02 07:36 | DCPLANNER ---
Addendum entered by Valarie Driver 04/04/23 11:45: Patient had a follow up appointment scheduled with podiatry for 04.02.23 - patient did attend appointment. Addendum entered by Valarie Driver 04/04/23 11:44: project manager process development received the following message from the ortho clinic regarding follow up appointment: Called patient (number out of service) Called number on auth to discuss and left a vm Original Note: project manager process development had message to schedule a follow up appointment for patient with ortho. project manager process development sent patients information to the front office staff at ortho. Patients information will be printed and reviewed. Clinic will call patient with appointment information.
== END 2023-04-01 05:37 | disposition home or self-care (01) ==
PROVIDERS: Emergency Provider Emergency Medicine; PCP Nurse Practitioner
DX: S82.891A Other fracture of right lower leg, initial encounter for closed fracture (principal); W17.89XA Other fall from one level to another, initial encounter
CPT/HCPCS: 70450; 72125; 73600; 73610; 96374; 96376; 99285; E0114; J2405; J3490

== ENCOUNTER 2023-04-06 09:43 | Day surgery (SDC) | payer BC, MEDICAID, SELFPAY ==
[2023-04-06] VITALS (9 sets, daily range): BP systolic 93–139; BP diastolic 45–98; PULSE 78–100; RESP 16–18; TEMP 36.2–36.4; O2SAT 96–99; BMI 23.5
[2023-04-06] MEDS: HYDROmorphone 1 mg/mL INJ 1 mL 0.5 MG IVP (10:26)
[2023-04-06] MEDS: sodium chloride 0.9% 1,000 ML 30 ML IV (10:27)
[2023-04-06] MEDS: ondansetron 2 mg/ML SDV 2 mL 4 MG IVP (10:27)
--- NOTE | 2023-04-06 12:10 | W.PM.OPSUD ---
Surgery/Procedure H&P Update DATE OF PROCEDURE: April 06, 2023 DATE H&P PERFORMED: 04/02/23 H&P UPDATE INFORMATION: I have reviewed H&P completed within last 30 days, I have examined patient prior to procedure and No changes to prior documentation CHANGES TO PREVIOUS DOCUMENTATION: none PREOP DIAGNOSIS: Right trimalleolar fracture PLANNED PROCEDURE: Operation Date: 04/06/23 11:40 Proposed Procedures p Open reduction internal fixation right trimalleolar fracture [id number],S82.851A(Right) - Og Gomes DPM
[2023-04-06] MEDS: ceFAZolin 2,000 MG in sodium chloride 0.9% (plus) 50 ML 100 MG IV (12:21)
[2023-04-06] MEDS: BUPivacaine 0.5% INJ 10 mL INJECTION (12:40)
--- NOTE | 2023-04-06 12:54 | ANES.PREANE2 ---
Pre-Anesthetic Assessment Height/Weight: Height 1.7 m Weight 68.039 kg Temp Pulse Resp BP Pulse Ox O2 Del Method 97.3 F L 91 18 139/83 96 Room Air 04/06/23 09:58 04/06/23 09:58 04/06/23 10:26 04/06/23 09:58 04/06/23 09:58 04/06/23 10:04 Preop Diagnosis: Right trimalleolar fracture Operation Date: 04/06/23 11:40 Proposed Procedures p Open reduction internal fixation right trimalleolar fracture 68768,S82.851A(Right) - Og Gomes DPM Familial anesthetic complications: none Was Beta Citlali taken within 24 hours: N/A Was Clonidine taken within 24 hours: N/A Last intake: Intake Last Liquid Date 04/05/23 Last Solid Date 04/05/23 Last Solid Time 22:00 Social Tobacco and No alcohol Exam alert, oriented x 3, clear to auscultation bilaterally and regular rate & rhythm Airway Submandibular: within normal limits Cervical ROM: within normal limits Mallampati: Class II Dentition: full Neuropsych Anxiety and Depression Anesthetic Plan ASA status: 2 Anesthesia: General and Regional (specify below) (right pop blk) Medications/Allergies Home Medications Medication Instructions Recorded Confirmed Last Taken Type thiamine mononitrate (vit B1) 100 100 mg PO DAILY 30 days #30 tabs 03/09/23 04/05/23 04/03/23 Rx mg tablet (Vitamin B-1 (mononitrate)) hydrocodone 5 mg-acetaminophen 325 1 tab PO Q8H PRN pain 7 days #21 04/02/23 04/06/23 04/06/23 09:00 Rx mg tablet tabs Allergies Allergy/AdvReac Type Severity Reaction Status Date / Time shellfish derived Allergy Severe ALGY-Anaphy Verified 04/02/23 15:26 laxis milk Allergy Mild ADR-Abdominal Verified 04/02/23 15:26 Pain Current Medications Generic Name Dose Route Start Last Admin Trade Name Freq PRN Reason Stop Dose Admin Hydromorphone HCl 0.5 mg 04/06/23 09:52 04/06/23 10:26 Hydromorphone 1 Mg/Ml Inj 1 Ml IVP 0.5 mg ONCE PRN Administration For preop pain/anxiety Sodium Chloride 1,000 mls @ 30 mls/hr 04/06/23 10:00 04/06/23 10:27 Sodium Chloride 0.9% IV 04/07/23 09:59 30 mls/hr .Q24H JEOVANY Administration Ondansetron HCl 4 mg 04/06/23 09:52 04/06/23 10:27 Ondansetron 2 Mg/Ml Sdv 2 Ml IVP 4 mg ONCE PRN Administration NAUSEA AND VOMITING PFSH Anesthesia Medical History No significant past medical history Surgical History No significant past surgical history Data Anesthesia Cardiac Studies: No Data to Display Anesthesia Procedures Nerve Block Nerve Block 1: Main Anesthesia: general anesthesia Time Out Performed: Yes Consent: requested by attending/covering physician, from patient, risks and benefits reviewed and patient agrees to proceed Nerve block location: popliteal (right) Anesthesia monitors applied: pulse oximetry, EKG, BP cuff and oxygen Nerve block position: supine Anesthetic Used: ropivicaine 0.5% Amount of anesthesia used (mL): 30 Ultrasound used to: recognize landmarks Nerve Stimulator Used?: No Interscalene/Femoral BLK: 4 stimuplex 21 g needle used for position and inplane approach Injection: neg aspiration of heme Patient Tolerated Procedure: well Complications: none
--- NOTE | 2023-04-06 13:41 | PM.OP ---
Operative Report Date of procedure: April 06, 2023 Pre-op diagnosis: Preop Diagnosis Right trimalleolar fracture Post-op diagnosis: Right trimalleolar fracture Procedure done: Open reduction internal fixation right trimalleolar fracture. CPT code 16840 Implants: 10 cc of Marcaine, 0.5% plain 3-0 Vicryl, 2-0 Vicryl, skin hammad Frankston right anatomic fibular plate Frankston 3.5 mm Interfrag screw Frankston 3.5 mm locking and nonlocking screws 45 mm Frankston react syndesmotic screw, 17 mm fibular component Specimens removed/disposition: none Pathology: none Surgeon: Og Gomes D.P.M. Sound Engineer Audio Control: Sosa Estimated blood loss: 10 46 IV fluids: 0 Urine output: 0 Complications: None Brief History: Patient examined and evaluated, findings and treatment options were discussed with patient at length.? Patient underwent excellent anatomic reduction of his right trimalleolar equivalent fracture under sedation in the emergency department.? He is in a posterior splint and remains nonweightbearing with crutches.? Requesting pain medication.? He has a history of abuse of benzodiazepines.? Given this history his parents are directly involved in managing his pain medication for this injury.? I prescribed him hydrocodone 5/325 mg to be taken every 8 hours as needed for pain.? This will remain in the possession of his parents and they will monitor his use.? He may supplement with ibuprofen up to 800 mg every 8 hours.? Discussed the nature of his fracture and the gross instability of his ankle.? Recommended open reduction internal fixation of the right distal fibula and likely syndesmotic repair.? I reviewed at length with the patient, the risks, potential complications, benefits, alternatives, expectations, and typical outcomes associated with the surgery. The risks and potential complications were explained in detail, including but not limited to infection, wound dehiscence or soft tissue complications, bleeding and hematoma, chronic edema, neuritis or nerve damage producing numbness or chronic pain, CRPS, failure to relieve pain or worsening pain, thick / painful / unsightly scar, limited motion / stiffness, malposition, delayed union, malunion, or nonunion, fracture, reaction to implants, anesthetic complications, venous thromboembolism, and deformity recurrence.? I discussed the notion of no regrets with the patient as it pertains to complications and outcomes. The patient seemed to understand the nature of the proposed care and required convalescence. They asked appropriate questions, answered to their satisfaction. They are aware no guarantees can be made as to a satisfactory outcome and they understand there may be other possible unforeseen complications or outcomes not listed here that will be treated accordingly if they arise. There were no written or implied guarantees given to the patient. They gave informed consent to proceed. Procedure: Under mild sedation the patient was brought to the operating room and placed onto the operating table in supine position. A timeout was performed. Anesthesia was then administered by the anesthesia service. Popliteal block to the right lower extremity also performed in the operating suite. Saphenous nerve block performed by myself utilizing 0.5% Marcaine plain. A well-padded pneumatic tourniquet was applied to the right high calf. The right lower extremity was scrubbed, prepped and draped utilizing normal aseptic technique. The right lower extremity was exanguinated with an Esmarch bandage and the tourniquet was then inflated to 250 mmHg. Attention was directed to the lateral aspect of the right ankle. A linear longitudinal incision was made through skin with a #15 blade directly over the lateral malleolus. Dissection was carried down to the layer of periosteum of the fibula utilizing sharp and blunt technique. Care was taken to retract and preserve neurovascular and tendinous structures. All bleeders were ligated and cauterized as necessary. A linear periosteal incision was performed and a Romero Pryor C fracture was appreciated to the distal fibula, this was evacuated of its hematoma utilizing curettage and saline flush. The fracture was reduced out to length, derotated and restored to its anatomic position followed by temporary stabilization with fracture reduction forceps. Next utilizing standard AO technique a Frankston 3.5 millimeter screw was utilized in lag technique as a interfrag point of fixation with excellent bony apposition and compression noted. A Frankston anatomic fibular plate was then utilized to provide additional stability to the right lateral malleolus. Utilizing standard AO technique a total of 4 screws distal to the fracture and 5 screws proximal were utilized in locking fashion with the plate with excellent bony apposition and compression noted. AP, oblique and lateral views confirmed no hardware violated ankle mortise. Cotton hook test confirmed syndesmotic disruption with diastases at the tib-fib clear space. A tricortical syndesmotic screw provided by Ayad 2845 mm in length was utilized to stabilize the syndesmosis, the screw was inserted utilizing standard AO technique and in parallel fashion to the ankle mortise. Excellent reduction of the syndesmosis was appreciated with smooth range of motion of the ankle joint appreciated intraoperatively. Congruent ankle mortise was appreciated post fixation. The incision was irrigated with copious amounts of sterile skin solution and closed in a layered fashion. Periosteum was reapproximated utilizing 2-0 Vicryl. Subcutaneous tissue with 3-0 Vicryl and skin with hammad. The incision was dressed with Adaptic, sterile 4 x 4's, Kerlix and Micheal wrap. Cam boot was applied to the right lower extremity. Tourniquet was then deflated and a prompt hyperemic response was noted to the distal digits of the right foot. Patient tolerated the procedure and anesthesia well and was transferred to the PACU with vital signs stable and vascular status intact. Following a period of postoperative monitoring he will be discharged home. He is to remain strict nonweightbearing to the right lower extremity. He is to elevate his right foot while resting. Patient given at home care instructions, given scheduled follow-up and my cell phone number to contact me with any postoperative questions or concerns.
--- NOTE | 2023-04-06 13:49 | XR_ITS ---
WS: [id number] Right ankle, 3 views, 04/06/2023 Clinical Data: post op Comparison: Right ankle, 04/01/2023 Findings: There is internal fixation of the distal fibular fracture with a plate and multiple screws. There is an anterior posterior screw in the distal fibula. There is also a longer screw across the fibula and distal tibia. There are surgical hammad in the lateral soft tissue of the distal right leg. Impression: Internal fixation of distal right fibular fracture.
--- NOTE | 2023-04-06 14:39 | ANE.PACU2 ---
Inpatient post-anesthesia follow up: Airway intact: Yes Vital signs: Temperature 97.5 F Pulse Rate 86 Respiratory Rate 18 Blood Pressure 136/65 Pulse Oximetry 97 Oxygen Delivery Me thod Room Air Oxygen Flow Rate 6 Fraction of Inspir ed Oxygen Hydration adequate: Yes Nausea and vomiting: No Pain level: 1 Mental status: Baseline
== END 2023-04-06 14:57 | disposition home or self-care (01) ==
PROVIDERS: PCP Nurse Practitioner; Visit Provider Podiatrist Foot & Ankle Surgery
PROC: (CPT 27822; principal; 2023-04-06 11:40)
DX: S82.851A Displaced trimalleolar fracture of right lower leg, initial encounter for closed fracture (principal); W17.89XA Other fall from one level to another, initial encounter
CPT/HCPCS: 27822; 73610; C1713; J0690; J1170; J2250; J2405; J2704; J2795; J3010; J3490; J7030

== ENCOUNTER → 2023-04-16 10:48 | Outpatient (BNVA) | payer BC, MEDICAID, SELFPAY | PROVIDERS: PCP Nurse Practitioner; Visit Provider Podiatrist Foot & Ankle Surgery | DX: S82.851A Displaced trimalleolar fracture of right lower leg, initial encounter for closed fracture (principal); W17.89XA Other fall from one level to another, initial encounter | CPT/HCPCS: 73610 ==

== ENCOUNTER → 2023-05-03 13:46 | Outpatient (BNVA) | payer BC, MEDICAID, SELFPAY | PROVIDERS: PCP Nurse Practitioner; Visit Provider Podiatrist Foot & Ankle Surgery | DX: S82.851A Displaced trimalleolar fracture of right lower leg, initial encounter for closed fracture (principal); X58.XXXA Exposure to other specified factors, initial encounter | CPT/HCPCS: 73610 ==

== ENCOUNTER → 2023-05-17 13:54 | Outpatient (BNVA) | payer BC, MEDICAID, SELFPAY | PROVIDERS: PCP Nurse Practitioner; Visit Provider Podiatrist Foot & Ankle Surgery | DX: S82.851D Displaced trimalleolar fracture of right lower leg, subsequent encounter for closed fracture with routine healing (principal); X58.XXXD Exposure to other specified factors, subsequent encounter | CPT/HCPCS: 73610 ==

== ENCOUNTER → 2023-05-31 14:05 | Outpatient (BNVA) | payer BC, MEDICAID, SELFPAY | PROVIDERS: PCP Nurse Practitioner; Visit Provider Podiatrist Foot & Ankle Surgery | DX: S82.851D Displaced trimalleolar fracture of right lower leg, subsequent encounter for closed fracture with routine healing; X58.XXXD Exposure to other specified factors, subsequent encounter | CPT/HCPCS: 73610 ==

== ENCOUNTER 2023-05-31 15:14 | Outpatient (CLI) | payer BC, MEDICAID, SELFPAY | END 2023-05-31 15:15 | disposition home or self-care (01) | LOC: SPT 15:15 | PROVIDERS: PCP Nurse Practitioner; Visit Provider Podiatrist Foot & Ankle Surgery | DX: Z46.89 Encounter for fitting and adjustment of other specified devices (principal); S82.851D Displaced trimalleolar fracture of right lower leg, subsequent encounter for closed fracture with routine healing; X58.XXXD Exposure to other specified factors, subsequent encounter | CPT/HCPCS: 97760; L1902 ==

== ENCOUNTER → 2023-06-28 13:30 | Outpatient (BNVA) | payer BC, SELFPAY | PROVIDERS: PCP Nurse Practitioner; Visit Provider Podiatrist Foot & Ankle Surgery | DX: Z98.890 Other specified postprocedural states; S82.851D Displaced trimalleolar fracture of right lower leg, subsequent encounter for closed fracture with routine healing; X58.XXXD Exposure to other specified factors, subsequent encounter | CPT/HCPCS: 73610 ==

== ENCOUNTER → 2023-07-19 13:41 | Outpatient (BNVA) | payer BC, SELFPAY | PROVIDERS: PCP Nurse Practitioner; Visit Provider Nurse Practitioner | DX: Z79.899 Other long term (current) drug therapy (principal) | CPT/HCPCS: 80061; 83036 ==

== ENCOUNTER 2024-09-18 12:17 | Emergency (ER) | payer MEDICAID, SELFPAY ==
[2024-09-18 12:51] VITALS: BP 124/79; PULSE 84; RESP 18; TEMP 36.7; O2SAT 98; BMI 22.8
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
[2024-09-18 14:11] VITALS: BP 143/79; PULSE 91; RESP 20; O2SAT 98
--- NOTE | 2024-09-18 14:52 | PC.NURSE ---
PT STATED, I AM NOT GOING TO USE CRUTCHES. PT DENIED WANTING CRUTCHES OR A WALKER AND STATED HE HAD SOME IF HE WANTED TO USED THEM.
[2024-09-18 15:02] VITALS: BP 128/81; PULSE 73; RESP 14; O2SAT 98
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
== END 2024-09-18 15:04 | disposition home or self-care (01) ==
PROVIDERS: Emergency Provider Physician Assistant; PCP Nurse Practitioner
DX: S22.030A Wedge compression fracture of third thoracic vertebra, initial encounter for closed fracture (principal); S22.040A Wedge compression fracture of fourth thoracic vertebra, initial encounter for closed fracture; V89.2XXA Person injured in unspecified motor-vehicle accident, traffic, initial encounter
CPT/HCPCS: 70450; 72072; 72125; 99284

== ENCOUNTER → 2024-09-25 07:44 | Outpatient (BNVA) | payer MEDICAID, SELFPAY | PROVIDERS: Visit Provider Orthopaedic Surgery | DX: S22.040A Wedge compression fracture of fourth thoracic vertebra, initial encounter for closed fracture (principal); S22.030A Wedge compression fracture of third thoracic vertebra, initial encounter for closed fracture; X58.XXXA Exposure to other specified factors, initial encounter | CPT/HCPCS: 72072 ==